=== PATIENT | male | born 1945 | race Caucasian/White ===

== ENCOUNTER 2019-12-11 06:44 | Outpatient (CLI) | payer MEDICARE, BC, OTHER ==
[2019-12-11 08:53] LABS: #Basophils 0.1 10x3/uL (0.0-0.2); #Eosinphils 0.7 10x3/uL (0.0-0.5); #Monocytes 0.7 10x3/uL (0.0-1.1); #Neutrophils 4.4 10x3/uL (1.5-8.4); %Basophils 0.6 % (0.0-2.0); %Eosinophils 9.4 % (0.0-6.0); %Lymphocytes 23.4 % (18.0-47.0); %Monocytes 9.3 % (0.0-10.0); Hemoglobin 14.2 g/dL (14.0-18.0); Mean Corpuscular HGB CONC 34.9 G/DL (32.0-36.0); Mean Corpuscular Hemoglobin 34.2 PG (27.0-33.0); Mean Corpuscular Volume 98.1 fl (80.0-100.0); Mean Platelet Volume 8.5 fl (7.4-10.4); Platelet Count 171 10x3/uL (130-400); RBC Distribution Width 12.9 % (11.5-14.5); Red Blood Cell (RBC) Count 4.15 10x6/uL (4.40-5.80); White Blood Cell (WBC) Count 7.8 10x3/uL (4.5-11.0)
--- NOTE | 2019-12-11 08:55 | RAD ---
Exam: Chest 2 views HISTORY:Preoperative exam Comparison: 08/21/2009 FINDINGS: Cardiac silhouette:Normal cardiac silhouette. Stable sternotomy wires and vascular rings. Stable chel nary stent. Aorta: Unremarkable Pulmonary vessels: Normal Costophrenic angles: Clear LUNGS: No masses or consolidation. Pneumothorax: None Osseous abnormalities: None IMPRESSION: No acute cardiopulmonary process.
[2019-12-11 09:45] LABS: ALT (SGPT) 27 U/L (8-55); AST (SGOT) 25 U/L (5-34); Albumin 4.3 g/dL (3.4-4.8); Alkaline Phosphatase 40 U/L (40-110); Anion Gap 18 mmol/L (10-20); BUN (Urea Nitrogen) 13 mg/dL (8.4-25.7); Bilirubin, Total 0.9 mg/dL (0.2-1.2); Calc. Creatinine Clearance 0 mL/min (70-130); Calcium 9.1 mg/dL (7.8-10.44); Carbon Dioxide 17 mmol/L (23-31); Chloride 108 mmol/L (98-107); Estimated GFR-MDRD 62; Globulin 2.2 g/dL (2.4-3.5); Glucose 110 mg/dL (83-110); Potassium 4.3 mmol/L (3.5-5.1); Protein, Total 6.5 g/dL (5.8-8.1); Sodium 139 mmol/L (136-145)
[2019-12-11 15:56] LABS: SARS-CoV-2 MS2 Positive; SARS-CoV-2 N Gene Negative; SARS-CoV-2 S Gene Negative; SARS-CoV-2 by NAA Not Detected (NotDetected); SARS-CoV-2 orf1ab Negative
== END 2019-12-11 06:45 | disposition home or self-care (01) ==
LOC: LABBT 06:44
PROVIDERS: ATTEND Internal Medicine Cardiovascular Disease
DX: Z01.818 Encounter for other preprocedural examination (principal); I35.0 Nonrheumatic aortic (valve) stenosis; Z20.828 Contact with and (suspected) exposure to other viral communicable diseases
CPT/HCPCS: 71046; 80053; 85025; U0003; 71045; 87635

== ENCOUNTER 2019-12-16 06:02 | Observation (INO) | payer MEDICARE, BC ==
[2019-12-13 09:45] VITALS: BMI 25.8
[2019-12-16] MEDS ORDERED: Heparin 10,000 UNITS/ 10 ML VIAL ONE (07:34)
[2019-12-16] MEDS ORDERED: Fentanyl 100 MCG/2 ML VIAL ONE (08:11)
[2019-12-16] MEDS ORDERED: Midazolam HCl 2 mg/2 ml Vial ONE (08:11)
[2019-12-16] MEDS ORDERED: Lidocaine 1% (PF) 30 ML VIAL ONE (08:16)
[2019-12-16] MEDS ORDERED: Bivalirudin 250 MG VIAL ONE (08:54)
[2019-12-16] MEDS ORDERED: Aspirin Chewable 81 MG TAB ONE (08:58)
[2019-12-16] MEDS ORDERED: Clopidogrel Bisulfate 300 MG TAB ONE (08:58)
[2019-12-16] MEDS ORDERED: Morphine 4 MG/ML VIAL SLOW IVP PRN (11:45)
[2019-12-16] MEDS ORDERED: Nitroglycerin 0.4 MG TAB (25 Tab Bottle) SL PRN (11:45)
[2019-12-16] MEDS ORDERED: Sodium Chloride 0.9% 1,000 ML IV SCH (11:45)
[2019-12-16] MEDS ORDERED: Morphine 2 MG/ML VIAL SLOW IVP PRN (11:45)
[2019-12-16] MEDS ORDERED: Iopamidol 370 76% 100 ML VIAL ONE (11:53)
[2019-12-16] MEDS ORDERED: Iopamidol 370 76% 50 ML VIAL FS ONE (11:53)
[2019-12-16] MEDS ORDERED: Ezetimibe 10 MG TAB PO SCH (21:00)
[2019-12-16] MEDS ORDERED: Rosuvastatin 20 MG TAB PO SCH (21:00)
--- NOTE | 2019-12-16 21:08 | EKG ---
Test Reason : POST STENT 2/BALLO 2 Blood Pressure : / mmHG Vent. Rate : 066 BPM Atrial Rate : 066 BPM P-R Int : 188 ms QRS Dur : 104 ms QT Int : 460 ms P-R-T Axes : 043 039 040 degrees QTc Int : 482 ms Normal sinus rhythm Prolonged QT Abnormal ECG No previous ECGs available Confirmed by Jemma MOORE ([id number]) on 12/16/2019 9:08:20 PM Referred By: ABEL Confirmed By:Jemma MOORE
[2019-12-17 07:35] VITALS: BP 136/63; TEMP 98
[2019-12-17] MEDS ORDERED: Clopidogrel Bisulfate 75 MG TAB PO SCH (09:00)
[2019-12-17] MEDS ORDERED: Ubidecarenone 50 MG CAP PO SCH (09:00)
[2019-12-17] MEDS ORDERED: Multivit, Therapeutic 1 TAB PO SCH (09:00)
[2019-12-17] MEDS ORDERED: Bisoprolol Fumarate 5 MG TAB PO SCH (09:00)
[2019-12-17] MEDS ORDERED: Aspirin 325 MG TAB PO SCH (09:00)
--- NOTE | 2019-12-18 11:32 | DIS ---
DATE OF ADMISSION: 12/16/2019 DATE OF DISCHARGE: 12/17/2019 DISCHARGE DIAGNOSES: 1. Drug-eluting stent placement in areas of in-stent restenosis-proximal ramus graft and proximal circumflex. 2. Status post coronary artery bypass graft x4 with two grafts patent-ADAMS to the LAD and vein graft to the ramus. The diagonal and right coronary artery grafts are occluded, which is an old finding for the past 10 years. 3. History of coronary artery stent placement in the proximal circumflex, LAD, into the diagonal (continued good results) and proximal ramus graft. 4. Severe aortic stenosis with valve area 0.62 cm2. 5. Hypercholesterolemia, under good control. 6. Hypertension, under good control. 7. Family history of coronary artery disease. 8. Former smoker. DISCHARGE MEDICATIONS: 1. Aspirin 325 q.a.m. 2. Bisoprolol 5 mg tablet-1/2 tablet q.a.m. 3. Zetia 10 mg daily. 4. Rosuvastatin 40 mg daily. 5. Clopidogrel 75 mg q.a.m. x1 year. 6. Isosorbide mononitrate 60 mg q.a.m. 7. Multivitamin one daily. 8. Ranexa 1000 mg b.i.d. 9. CoQ10 at 200 mg daily. DISCHARGE DISPOSITION: Arrangements will be made for the patient to be seen at [facility] for TAVR as per his wishes. He will be seen in followup in 2 months. HOSPITAL COURSE: Mr. 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 When he was seen for followup in May 2019, he stated that he did not have any chest discomfort, which was not the case. He underwent cardiac catheterization. The mean left ventricular-aortic gradient was 51 mm with an aortic valve area 0.62 cm2. He had normal left ventricular function with ejection fraction of 55% to 60% and mild mitral regurgitation. The LAD was totally occluded in its midportion. There was a patent proximal LAD to diagonal stent. The ramus is totally occluded. The circumflex had an 80% proximal in-stent restenosis. The right coronary artery had a 90% mid and 100% distal stenosis. The distal vessel filled retrograde from the left coronary and the ramus grafts. Bypass grafts revealed patent ADAMS to the LAD. The ramus was patent, but had an 80% proximal in-stent restenosis. The diagonal and RCA grafts have been occluded for at least 10 years. He underwent placement of Synergy 2.5 x 12 mm in the ramus graft post dilated with a 4 mm balloon. In the proximal circumflex, Synergy 3.5 x 16 was placed and post dilated with a 4.0 and 4.5 mm balloon. He was observed overnight and then discharged. Arrangements will be made for TAVR at [facility]. Job ID: [id number] [facility]ERS[facility]
== END 2019-12-17 11:02 | disposition home health service (06) ==
LOC: CCL 06:02 → 2NO 11:42
PROVIDERS: ADMIT Internal Medicine Cardiovascular Disease; ATTEND Internal Medicine Cardiovascular Disease
PROC: 4A023N8 Measurement of Cardiac Sampling and Pressure, Bilateral, Percutaneous Approach (ICD-10-PCS; principal; 2019-12-16)
PROC: B2111ZZ Fluoroscopy of Multiple Coronary Arteries using Low Osmolar Contrast (ICD-10-PCS; 2019-12-16)
DX: I25.10 Atherosclerotic heart disease of native coronary artery without angina pectoris (principal); I35.0 Nonrheumatic aortic (valve) stenosis; I34.0 Nonrheumatic mitral (valve) insufficiency; E78.00 Pure hypercholesterolemia, unspecified; I10 Essential (primary) hypertension; I25.2 Old myocardial infarction; Z79.02 Long term (current) use of antithrombotics/antiplatelets; Z79.82 Long term (current) use of aspirin; Z79.899 Other long term (current) drug therapy; Z82.49 Family history of ischemic heart disease and other diseases of the circulatory system; Z87.891 Personal history of nicotine dependence; Z95.1 Presence of aortocoronary bypass graft; Z95.5 Presence of coronary angioplasty implant and graft
CPT/HCPCS: 85347 ×2; 93005; 93461; 93561; 93567; C1874; C9600; C9601; G0378 ×2; 92928; 92929; 99152; 99153; J0583; J1644; J2001; J2250; J3010; Q9967

== ENCOUNTER 2020-01-25 13:50 | Emergency (ER) | payer MEDICARE, BC ==
[2020-01-25 20:02] LABS: SARS-CoV-2 MS2 Negative; SARS-CoV-2 N Gene Positive; SARS-CoV-2 S Gene Positive; SARS-CoV-2 by NAA DETECTED (NotDetected); SARS-CoV-2 orf1ab Positive
== END 2020-01-25 14:20 | disposition home or self-care (01) ==
LOC: ERS 13:50
DX: U07.1 COVID-19 (principal)
CPT/HCPCS: 99283; U0003; 87635

== ENCOUNTER 2024-03-03 04:17 | Observation (INO) | payer MEDICARE ==
[2024-03-03] MEDS ORDERED: Aspirin Chewable 81 MG TAB ONE (04:31)
[2024-03-03] MEDS ORDERED: Morphine 4 MG/ML VIAL ONE (04:41)
[2024-03-03] MEDS ORDERED: Ondansetron PF 4 MG/2 ML Vial ONE (04:41)
[2024-03-03 04:55] LABS: #Basophils 0.03 10x3/uL (0.0-0.2); %Basophils 0.3 % (0.0-1.0); %Eosinophils 3.3 % (0.0-10.0); %Lymphocytes 12.2 % (21.0-51.0); %Monocytes 7.5 % (0.0-10.0); %Neutrophils 76.3 % (42.0-75.0); Hematocrit 33.3 % (42.0-52.0); Hemoglobin 11.7 g/dL (14.0-18.0); Mean Corpuscular HGB CONC 35.1 g/dL (32.0-36.0); Mean Corpuscular Hemoglobin 34.3 pg (27.0-31.0); Mean Corpuscular Volume 97.7 fL (78.0-98.0); Mean Platelet Volume 8.6 fL (7.4-10.4); Platelet Count 170 10x3/uL (130-400); RBC Distribution Width 13.2 % (11.5-14.5); Red Blood Cell (RBC) Count 3.41 mill/uL (4.70-6.10)
[2024-03-03 05:13] LABS: ALT (SGPT) 23 U/L (8-55); AST (SGOT) 22 U/L (5-34); Albumin 3.7 g/dL (3.4-4.8); Alkaline Phosphatase 41 U/L (40-110); Anion Gap 11 mmol/L (10-20); BUN (Urea Nitrogen) 9 mg/dL (8.4-25.7); Bilirubin, Total 1.4 mg/dL (0.2-1.2); Calc. Creatinine Clearance 0 mL/min (70-130); Carbon Dioxide 20 mmol/L (23-31); Chloride 110 mmol/L (98-107); Estimated GFR 87; Globulin 3.1 g/dL (2.4-3.5); Glucose 118 mg/dL (83-110); Lipase 15 U/L (8-78); Potassium 3.7 mmol/L (3.5-5.1); Protein, Total 6.8 g/dL (5.8-8.1); Sodium 137 mmol/L (136-145)
[2024-03-03 05:23] LABS: Troponin I Less than 0.010 ng/mL (< 0.028)
[2024-03-03] MEDS ORDERED: Acetaminophen 325 MG TAB PO PRN (06:10)
[2024-03-03 08:14] VITALS: BMI 25.0
[2024-03-03] MEDS ORDERED: Nitroglycerin 0.4 MG TAB (25 Tab Bottle) SL PRN ×2 (08:28→09:09)
[2024-03-03] MEDS ORDERED: Morphine 2 MG/ML VIAL SLOW IVP PRN (08:38)
[2024-03-03] MEDS ORDERED: Metoprolol Tartrate 25 MG TAB PO SCH (09:00)
[2024-03-03] MEDS ORDERED: Clopidogrel Bisulfate 75 MG TAB PO SCH (09:00)
[2024-03-03] MEDS ORDERED: Aspirin 81 mg Enteric Coated Tablet PO SCH (09:00)
[2024-03-03] MEDS ORDERED: Ibuprofen 600 MG TAB PO PRN (09:04)
[2024-03-03] MEDS ORDERED: Cetirizine HCl 10 MG TAB PO PRN (09:09)
[2024-03-03] MEDS ORDERED: Loratadine 10 MG TAB PO PRN (09:15)
[2024-03-03] MEDS: Famotidine 20 MG TAB PO SCH (09:16)
[2024-03-03] MEDS: Enoxaparin 40 MG (0.4 mL) SYRINGE SC SCH (09:17)
[2024-03-03 10:11] LABS: Troponin I 0.014 ng/mL (< 0.028)
[2024-03-03 11:34] LABS: Hemoglobin A1c 5.1 % (4.0-6.0)
[2024-03-03 11:41] LABS: Troponin I 0.019 ng/mL (< 0.028)
[2024-03-03 16:25] LABS: Troponin I 0.012 ng/mL (< 0.028)
[2024-03-03 16:35] VITALS: BP 161/70; TEMP 97.7
[2024-03-03] MEDS ORDERED: Ranolazine ER 500 MG TAB PO SCH (21:00)
[2024-03-03] MEDS ORDERED: Non-Formulary Item 1 EACH (Rosuvastatin Calcium [Crestor] 40 MG Tablet) PO SCH (21:00)
[2024-03-03] MEDS ORDERED: Rosuvastatin 20 MG TAB PO SCH (21:00)
[2024-03-03] MEDS ORDERED: Non-Formulary Item 1 EACH (Ranolazine [Ranexa] 1,000 MG Tab.Er.12h) PO SCH (21:00)
[2024-03-03] MEDS ORDERED: Ezetimibe 10 MG TAB PO SCH (21:00)
[2024-03-03] MEDS ORDERED: Atorvastatin Calcium 40 MG TAB PO SCH (21:00)
[2024-03-04] MEDS ORDERED: Bisoprolol Fumarate 5 MG TAB PO SCH (09:00)
[2024-03-04] MEDS ORDERED: Aspirin 325 MG TAB PO SCH (09:00)
[2024-03-04] MEDS ORDERED: Multivit, Therapeutic 1 TAB PO SCH (09:00)
[2024-03-04] MEDS ORDERED: Non-Formulary Item 1 EACH (Multivitamin [Multivitamin] 1 EACH Tablet) PO SCH (09:00)
[2024-03-04] MEDS ORDERED: Furosemide 20 MG TAB PO SCH (09:00)
[2024-03-04] MEDS ORDERED: Cholecalciferol 1,000 UNITS (25 MCG) TAB PO SCH ×2 (09:00)
== END 2024-03-03 17:46 | disposition home or self-care (01) ==
LOC: ERS 04:17 → OBS 06:13
PROVIDERS: ADMIT Internal Medicine; ATTEND Internal Medicine
DX: R07.89 Other chest pain (principal); R73.9 Hyperglycemia, unspecified; I10 Essential (primary) hypertension; I25.10 Atherosclerotic heart disease of native coronary artery without angina pectoris; E78.5 Hyperlipidemia, unspecified; Z86.79 Personal history of other diseases of the circulatory system; Z95.5 Presence of coronary angioplasty implant and graft; Z87.891 Personal history of nicotine dependence; Z95.1 Presence of aortocoronary bypass graft; Z98.49 Cataract extraction status, unspecified eye; Z79.1 Long term (current) use of non-steroidal anti-inflammatories (NSAID); Z79.82 Long term (current) use of aspirin; Z79.899 Other long term (current) drug therapy
CPT/HCPCS: 71045; 80053; 83036; 83690; 84484 ×2; 85025; 93005; 96372; 96374; 96375; 99285; G0378 ×2; J1650; J2270; J2405; 36415; 93010